=== PATIENT | female | born 1950 | race Caucasian/White ===

== ENCOUNTER 2017-01-05 05:57 | Day surgery (SDC) | payer OTHER ==
[~2017-01-05] VITALS: Ht 160 cm; Wt 63.9 kg
--- NOTE | ~2017-01-05 | OR ---
ADMIT: 01/05/2017 RM/LOC: [facility] MR#: [id number] [address] [address] [facility] [address] [place] [id number] Operative/Delivery Room Report SEX: F AGE: 67 : 1950 SURGERY DATE: 01/05/2017 SURGEON: Kelton Beauchamp MD PROCEDURE: Esophagogastroduodenoscopy with biopsies. PREOPERATIVE DIAGNOSIS: 1. Persistent reflux. 2. Chronic cough. OPERATION PERFORMED: Esophagogastroduodenoscopy with biopsies. DESCRIPTION OF THE PROCEDURE: The patient was brought to procedure room, placed in left lateral decubitus position. Informed consent was obtained preoperatively. The risks and benefits including, but not limited to, perforation, sedation, bleeding were discussed with the patient and agreed upon. All questions were answered, alternatives discussed. The patient agreed. TIVA was provided by Jitendra, the MANAGER RESOURCE with propofol. Olympus videoendoscope, model GIF-XQ 180 was passed through level of cricopharyngeus using finger guidance. Then, using direct visualization, scope was passed to the length the esophagus, where no abnormalities; esophageal mucosa, esophageal varices were identified. There was a small sliding type hiatal hernia. The stomach was entered, air was insufflated, fundic pool was suctioned. Gastric mucosa inspected in its entirety, found to be normal. Biopsies were taken in the antrum to rule out occult Helicobacter infection. The pyloric sphincter was round, small, opened and closed appropriately. Duodenal bulb was entered, inspected through the second part and biopsies were taken to rule out occult celiac disease. Scope was withdrawn in the stomach, retroflexed in the cardia, where once again the small hiatal hernia was identified. The scope was withdrawn into the esophagus and several biopsies were taken to rule out occult esophagitis. There was no evidence of Urban esophagus. An incidental view of the vocal cords revealed no abnormalities. The patient tolerated the procedure well. No complications were expected. She will call me in 1 week for her biopsy report, sooner if she should have any postoperative problems. We will now proceed with colonoscopy on this patient due to her history of adenomatous colon polyps. Kelton Beauchamp MD/ roman JOB #: [id number] CC: Kelton Beauchamp, Attending Physician Romulo Infante, Family Physician
--- NOTE | 2017-01-06 06:21 | OR ---
ADMIT: 01/05/2017 RM/LOC: [facility] [place] MR#: [id number] [facility] [address] [place] [id number] LISANINA Boyer [address] [place] [address] Operative/Delivery Room Report SEX: F AGE: 67 : 1950 SURGERY DATE: 01/05/2017 SURGEON: Kelton Beauchamp MD ADDENDUM: We will start her on a trial of Prilosec 40 mg twice a day for her persistent reflux and to see if there is any change in her cough with high- dose suppressive therapy. Kelton Beauchamp MD/ roman JOB #: [id number] CC: Kelton Beauchamp, Attending Physician Romulo Infante, Family Physician MD Kelton Grigsby III, MD [facility] [address] [place] [address] [place] [address]
--- NOTE | 2017-01-06 06:21 | OR ---
ADMIT: 01/05/2017 RM/LOC: [facility] MR#: [id number] [id number] [address] [facility] [address] [place] [address] Operative/Delivery Room Report SEX: F AGE: 67 : 1950 SURGERY DATE: 01/05/2017 SURGEON: Kelton Beauchamp MD PROCEDURE: Total colonoscopy. PREOPERATIVE DIAGNOSIS: Colon polyps. POSTOPERATIVE DIAGNOSIS: Minimal right-sided diverticulosis. DESCRIPTION OF PROCEDURE: The patient was brought to procedure room, and placed in left lateral decubitus position. She had previously been gastroscoped. Once again, informed consent had been obtained preoperatively. The risks and benefits including, but not limited to, perforation, sedation, bleeding were discussed with the patient and agreed upon. All questions were answered, alternatives discussed. The patient agreed. TIVA provided by the CONCRETE F[employer]ATER with propofol. Anal inspection, digital examination revealed no abnormalities or obstructing masses. Olympus videoendoscope, model CFH-180 AL was inserted into the rectum and advanced to cecum without difficulty. The appendiceal orifice and ileocecal valve were identified. The valve was cannulated. The terminal ileum appeared normal for approximately 10 cm. The scope was slowly withdrawn through a normal cecum, ascending, transverse, descending, sigmoid colon. Rectum likewise appeared normal. Scope was retroflexed. The anal verge appeared normal. The patient tolerated the procedure well. No complications were expected. There was no blood loss during the procedure. We would recommend that due to her history of adenomatous polyps, she have repeat colonoscopy in 5 years unless signs or symptoms develop in the interval. She will call me if she has any postoperative problems. Kelton Beauchamp MD/ roman JOB #: [id number] CC: Kelton Beauchamp, Attending Physician Romulo Infante, Family Physician
== END 2017-01-05 09:44 | disposition home or self-care (01) ==
LOC: SSS 05:57
PROC: 0DB68ZX Excision of Stomach, Via Natural or Artificial Opening Endoscopic, Diagnostic (ICD-10-PCS; principal; 2017-01-05)
PROC: 0DB98ZX Excision of Duodenum, Via Natural or Artificial Opening Endoscopic, Diagnostic (ICD-10-PCS; principal; 2017-01-05)
PROC: 0DJD8ZZ Inspection of Lower Intestinal Tract, Via Natural or Artificial Opening Endoscopic (ICD-10-PCS; principal; 2017-01-05)
PROC: 0DB58ZX Excision of Esophagus, Via Natural or Artificial Opening Endoscopic, Diagnostic (ICD-10-PCS; principal; 2017-01-05)
DX: K29.50 Unspecified chronic gastritis without bleeding (principal); K21.0 Gastro-esophageal reflux disease with esophagitis; K57.30 Diverticulosis of large intestine without perforation or abscess without bleeding; K44.9 Diaphragmatic hernia without obstruction or gangrene; Z88.1 Allergy status to other antibiotic agents; Z88.8 Allergy status to other drugs, medicaments and biological substances; Z86.010 Personal history of colon polyps; Z98.890 Other specified postprocedural states